=== PATIENT | female | born 1955 | race Caucasian/White ===

== ENCOUNTER 2019-10-12 09:19 | Emergency (ER) | payer BC, OTHER ==
[~2019-10-12] VITALS: Ht 165.1 cm; Wt 84.4 kg
[~2019-10-12 09:19] MED LIST: ALBUTEROL SULF8.5 GM INH; AMITRIPTYLINE H10 MG PO; CALCIUM 600 +1 EAC3 PO; CELEBREX200 MG PO; CYCLOBENZAPRINE10 MG PO; DICLOFENAC SODI75 MG PO; DULERA 100 MCG/13 GM INH; FEXOFENADINE H180 MG PO; FLUTICASONE PRO16 GM NS; GABAPENTIN300 MG PO; HYDROCODON-ACE1 EA11 PO; LIPITOR40 MG PO; MELATONIN10 M2 PO; OMEGA 3 1,0001 EACH PO; VITAMIN D31000 UNI1 PO
[2019-10-12] MEDS ORDERED: WIXELA 250-501 EACH INH (09:35)
[2019-10-12] MEDS ORDERED: NORCO 7.5-3251 EACH PO (10:37)
[2019-10-12] MEDS ORDERED: ONDANSETRON ODT8 MG PO (10:37)
== END 2019-10-12 10:51 | disposition home or self-care (01) ==
LOC: ED 09:19
DX: S82.852A Displaced trimalleolar fracture of left lower leg, initial encounter for closed fracture (principal); W54.1XXA Struck by dog, initial encounter; Z87.891 Personal history of nicotine dependence; Z88.0 Allergy status to penicillin; Z88.5 Allergy status to narcotic agent; Z79.899 Other long term (current) drug therapy
CPT/HCPCS: 73610; 96372; 99283-25; J1170